=== PATIENT | female | born 1930 | race Caucasian/White ===

== ENCOUNTER → 2018-04-16 | Outpatient (CLI) | payer OTHER | LOC: GIMAGING 16:29 | PROVIDERS: ATTEND Registered Nurse | DX: J84.9 Interstitial pulmonary disease, unspecified (principal); J44.9 Chronic obstructive pulmonary disease, unspecified; R91.8 Other nonspecific abnormal finding of lung field; M25.78 Osteophyte, vertebrae | CPT/HCPCS: 71046-PO ==